=== PATIENT | female | born 1955 | race Caucasian/White ===

== ENCOUNTER → 2021-04-26 13:10 | Outpatient (CLI) | payer MEDICARE, OTHER, SELFPAY | PROVIDERS: Family Provider Internal Medicine; PCP Internal Medicine; Referring Provider Physical Medicine & Rehabilitation; Visit Provider Physical Medicine & Rehabilitation | DX: S74.10XA Injury of femoral nerve at hip and thigh level, unspecified leg, initial encounter (principal); R26.81 Unsteadiness on feet | CPT/HCPCS: 72110; 95886; 95910 ==

== ENCOUNTER → 2021-04-26 15:10 | Outpatient (CLI) | payer MEDICARE, OTHER, SELFPAY ==
--- NOTE | 2021-04-26 15:12 | DI.RAD.S_ITS ---
PROCEDURE: XR LUMBAR SPINE MIN 4V INDICATIONS: Low back pain right lower extremity weakness TECHNIQUE: 5 views of the lumbar spine were acquired, including bilateral oblique views. COMPARISON: Reference is made to the CT abdomen pelvis dated February 04, 2017. FINDINGS: Bones: 5 nonrib-bearing vertebrae are present. Minimal grade 1 anterolisthesis at L4-S1. No vertebral body compression fractures. Degenerative changes of the endplates with sclerosis and anterior osteophytosis. No suspicious bony lesions. Moderate disc height loss, most prominent at L4-5. Facet arthrosis, most prominent at L4-S1. Soft tissues: Overlying bowel gas pattern is normal. No suspicious soft tissue calcifications. Oblique images: No pars defects. IMPRESSION: No acute osseous abnormality. Dictated by: Priyank Matamoros M.D. on 04/26/2021 at 15:59 Approved by: Priyank Matamoros M.D. on 04/26/2021 at 16:06
== END ==
PROVIDERS: Family Provider Internal Medicine; PCP Internal Medicine; Referring Provider Physical Medicine & Rehabilitation; Visit Provider Physical Medicine & Rehabilitation
DX: R26.81 Unsteadiness on feet (principal); M54.50 Low back pain, unspecified; R29.898 Other symptoms and signs involving the musculoskeletal system; M47.816 Spondylosis without myelopathy or radiculopathy, lumbar region; M47.817 Spondylosis without myelopathy or radiculopathy, lumbosacral region
CPT/HCPCS: 72110

== ENCOUNTER → 2021-05-17 11:19 | Outpatient (CLI) | payer MEDICARE, OTHER, SELFPAY | PROVIDERS: Family Provider Internal Medicine; PCP Internal Medicine; Referring Provider Physical Medicine & Rehabilitation; Visit Provider Physical Medicine & Rehabilitation | DX: R20.2 Paresthesia of skin (principal) | CPT/HCPCS: 95885; 95886; 95911 ==